=== PATIENT | female | born 2000 | race Two or more races ===

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

== ENCOUNTER 2019-08-09 14:31 | Emergency (ER) | payer OTHER ==
[2019-08-09 14:35] VITALS: BP 125/70; PULSE 85; TEMP 98.9; BMI 20.5
--- NOTE | 2019-08-09 15:40 | PDOC ---
History of Present Illness - General Chief Complaint: Nausea/Vomiting Stated Complaint: VOMITING Time Seen by Provider: 08/09/19 15:16 History Source: Patient - History of Present Illness Timing/Duration: reports: other Past History - Past Medical History Allergies/Adverse Reactions: Allergies Allergy/AdvReac Type Severity Reaction Status Date / Time No Known Allergies Allergy Verified 08/09/19 14:35 Home Medications: Ambulatory Orders Penicillin V Potassium [Pen Vee K -] 500 mg PO TID #30 tablet 03/03/17 Cetirizine HCl/Pseudoephedrine [Allergy+Congestion Relf-D Tab] 1 each PO DAILY # 30 tab 12/11/18 Ondansetron HCl [Zofran] 4 mg PO Q8H #12 tablet 08/09/19 COPD: No - Immunization History Immunization Up to Date: No - Psycho Social/Smoking Cessation Hx Smoking History: Never smoked Have you smoked in the past 12 months: No Hx Alcohol Use: No Drug/Substance Use Hx: No Substance Use Type: None Review of Systems - Review of Systems Constitutional: Yes: Weakness. No: Chills, Fever HEENTM: Yes: Nose Congestion. No: Ear Pain, Throat Pain Respiratory: Yes: Cough. No: Shortness of Breath ABD/GI: Yes: Nausea, Vomiting. No: Diarrhea, Abdominal cramping *Physical Exam - Vital Signs Last Vital Signs Temp Pulse Resp BP Pulse Ox 98.9 F 85 18 125/70 98 08/09/19 14:32 08/09/19 14:32 08/09/19 14:32 08/09/19 14:32 08/09/19 14:32 - Physical Exam General Appearance: Yes: Appropriately Dressed. No: Apparent Distress HEENT: positive: Normal ENT Inspection, Normal Voice, TMs Normal, Pharynx Normal. negative: Scleral Icterus (R), Scleral Icterus (L) Neck: positive: Supple Respiratory/Chest: positive: Lungs Clear, Normal Breath Sounds. negative: Respiratory Distress Cardiovascular: positive: Regular Rate, S1, S2 Gastrointestinal/Abdominal: positive: Soft. negative: Tender Integumentary: positive: Dry, Warm Neurologic: positive: Fully Oriented, Alert, Normal Mood/Affect Medical Decision Making - Medical Decision Making 08/09/19 16:25 19-year-old female, no significant history, here with URI symptoms x several days and developed malaise with weakness, dizziness and 2 episodes of nausea vomiting today. No body aches or fever. No sick contacts or recent travel. No tob use see exam M/ viral syndrome Exam wnl Flu and preg neg Dc w/ supportive tx 08/09/19 17:48 Ketones 4+ on UA. Upreg neg. Patient able to tolerate p.o. and, in fact, has drank several cups of water while in ED. Flu negative. Will dc with supportive treatment. Reasons to return discussed with patient Discharge - Discharge Information Problems reviewed: Yes Clinical Impression/Diagnosis: Viral syndrome Condition: Good Disposition: HOME - Additional Discharge Information Prescriptions: Ondansetron HCl [Zofran] 4 mg PO Q8H #12 tablet - Follow up/Referral Referrals: Sakina Arriaga MD [Primary Care Provider] - - Patient Discharge Instructions Patient Printed Discharge Instructions: DI for Viral Syndrome Additional Instructions: Your flu and tests were negative Rest, drink plenty of fluids and take medication as needed If symptoms worsen, return to ER - Post Discharge Activity Work/Back to School Note: Back to Work
[2019-08-09] MEDS ORDERED: ONDANSETRON 4 MG TABLET PO ONE ×2 (16:45→16:46)
[2019-08-09 17:47] LABS: PH,URINE 5.5 (5.0-8.0); URINE APPEARANCE CLOUDY; URINE BILIRUBIN NEGATIVE (NEGATIVE); URINE COLOR DK YELLOW; URINE GLUCOSE (UA) NEGATIVE (NEGATIVE); URINE KETONE 4+ (NEGATIVE); URINE LEUK ESTERASE NEGATIVE (NEGATIVE); URINE NITRITE NEGATIVE (NEGATIVE); URINE PROTEIN TRACE (NEGATIVE)
== END 2019-08-09 17:59 | disposition home or self-care (01) ==
LOC: JER 14:31 → JERFT 14:31
DX: B34.9 Viral infection, unspecified (principal)
CPT/HCPCS: 81003; 84703; 87804; 99282-25

== ENCOUNTER 2021-01-31 09:54 | Emergency (ER) | payer OTHER ==
[2021-01-31 10:38] VITALS: BP 111/65; PULSE 104; TEMP 98.9; BMI 21.4
== END 2021-01-31 11:15 | disposition home or self-care (01) ==
LOC: JER 09:54
DX: R07.0 Pain in throat (principal)
CPT/HCPCS: 87070; 99283-25